=== PATIENT | male | born 1945 | race Caucasian/White ===

== ENCOUNTER → 2016-08-01 | Outpatient (CLI) | payer MEDICARE, OTHER | LOC: RAD 09:08 | PROVIDERS: ATTEND Family Medicine | DX: R42 Dizziness and giddiness (principal) | CPT/HCPCS: 70551; 93880 ==

== ENCOUNTER → 2016-11-02 | Outpatient (CLI) | payer MEDICARE, OTHER ==
--- NOTE | 2016-11-02 11:59 | RADIOLOGY REPORT (SQ) ---
EXAM DESCRIPTION: L SPINE WHOLE COMPLETED DATE/TIME: 11/02/2016 11:27 am REASON FOR STUDY: DORSALGIA (M54.9) M54.9 DORSALGIA, UNSPECIFIED COMPARISON: None. NUMBER OF VIEWS: Five views including obliques. TECHNIQUE: AP, lateral, oblique, and sacral radiographic images acquired of the lumbar spine. LIMITATIONS: None. FINDINGS: MINERALIZATION: Normal. SEGMENTATION: Normal. No transitional anatomy. ALIGNMENT: Normal. VERTEBRAE: Maintained height. No fracture or worrisome bone lesion. DISCS: Preserved height. Anterior osteophytic lipping is identified at multiple levels. POSTERIOR ELEMENTS: Pedicles and facets are intact. No pars defect or posterior arch defects. HARDWARE: None in the spine. PARASPINAL SOFT TISSUES: Normal. PELVIS: Intact as visualized. No fractures or worrisome bone lesions. SI joints intact. OTHER: Vascular calcifications are identified in the abdominal aorta and iliac vessels. IMPRESSION: No significant vertebral compression or disc space reduction is seen. Degenerative holm ges as noted above. Other findings as noted above TECHNICAL DOCUMENTATION: JOB ID: [id number]- All Rights Reserved
== END ==
LOC: RAD 11:06
PROVIDERS: ATTEND Family Medicine
DX: M54.9 Dorsalgia, unspecified (principal)
CPT/HCPCS: 72110

== ENCOUNTER 2017-01-30 11:52 | Observation (INO) | payer MEDICARE, OTHER ==
--- NOTE | 2017-01-30 15:44 | ER Document Report ---
ED General - General Chief Complaint: Difficulty Swallowing Stated Complaint: STOMACH PAIN Time Seen by Provider: 01/30/17 15:40 Mode of Arrival: Ambulatory Information source: Patient Notes: Patient states that 3 different times in the past he has had food stuck in his esophagus but is always passed within 20 minutes. He states last night at 6 PM approximately he was eating chicken and felt it get stuck in his esophagus. He states he has been unable to get rid of the sensation that it is stuck up until now. He states he is constantly gagging and spitting up mucus. He states he cannot swallow water. He denies any problems breathing. He states he has a dull pain in the center of his chest. It is constant. It does not radiate. Nothing makes it better or worse. TRAVEL OUTSIDE OF THE [place] IN LAST 30 DAYS: No - Related Data Allergies/Adverse Reactions: aspirin [Aspirin] Allergy (Severe, Verified 01/30/17 12:44) Anaphylaxis Past Medical History - Social History Smoking Status: Former Smoker Chew tobacco use (# tins/day): No Frequency of alcohol use: Occasional Drug Abuse: None Family History: Reviewed & Not Pertinent - Past Medical History Cardiac Medical History: Reports: Hx Hypercholesterolemia, Hx Hypertension Denies: Hx Coronary Artery Disease, Hx Heart Attack Pulmonary Medical History: Denies: Hx Asthma, Hx Bronchitis, Hx COPD, Hx Pneumonia Neurological Medical History: Denies: Hx Cerebrovascular Accident, Hx Seizures Endocrine Medical History: Reports: Hx Diabetes Mellitus Type 2 Renal/ Medical History: Denies: Hx Peritoneal Dialysis Musculoskeltal Medical History: Denies Hx Arthritis Past Surgical History: Reports: Hx Abdominal Surgery - shrapnel removed, Hx Oral Surgery - jaw surgery, Hx Orthopedic Surgery - broken collar bone - Immunizations Hx Diphtheria, Pertussis, Tetanus Vaccination: Yes Hx Pneumococcal Vaccination: 04/23/12 Review of Systems - Review of Systems Constitutional: denies: Chills, Fever Respiratory: denies: Short of breath, Stridor Gastrointestinal: denies: Abdominal pain, Diarrhea, Vomiting -: Yes All other systems reviewed and negative Physical Exam - Vital signs Vitals: Temp Pulse BP Pulse Ox 99.0 F 74 152/59 H 99 01/30/17 12:46 01/30/17 12:46 01/30/17 12:46 01/30/17 12:46 Interpretation: Hypertensive - General General appearance: Appears well, Alert - HEENT Head: Normocephalic, Atraumatic Eyes: Normal Pupils: PERRL - Respiratory Respiratory status: No respiratory distress Chest status: Nontender Breath sounds: Normal Chest palpation: Normal - Cardiovascular Rhythm: Regular Heart sounds: Normal auscultation Murmur: No - Abdominal Inspection: Normal Distension: No distension Bowel sounds: Normal Tenderness: Nontender Organomegaly: No organomegaly - Back Back: Normal, Nontender - Extremities General upper extremity: Normal inspection, Nontender, Normal color, Normal ROM , Normal temperature General lower extremity: Normal inspection, Nontender, Normal color, Normal ROM , Normal temperature, Normal weight bearing. No: Alexa's sign - Neurological Neuro grossly intact: Yes Cognition: Normal Orientation: AAOx4 [place] Coma Scale Eye Opening: Spontaneous [place] Coma Scale Verbal: Oriented Luis Coma Scale Motor: Obeys Commands Luis Coma Scale Total: 15 Speech: Normal Motor strength normal: LUE, RUE, LLE, RLE Sensory: Normal - Psychological Associated symptoms: Normal affect, Normal mood - Skin Skin Temperature: Warm Skin Moisture: Dry Skin Color: Normal Course - Re-evaluation Re-evalutation: 01/30/17 15:53 Dr. Nelson evaluated the patient in the emergency department and will admit the patient. Please see his note. - Vital Signs Vital signs: Temp Pulse Resp BP Pulse Ox 99.0 F 74 152/59 H 99 01/30/17 12:46 01/30/17 12:46 01/30/17 12:46 01/30/17 12:46 Discharge - Discharge Clinical Impression: Esophageal foreign body Qualifiers: Encounter type: initial encounter Qualified Code(s): T18.108A - Unspecified foreign body in esophagus causing other injury, initial encounter Condition: Fair Disposition: ADMITTED OBSERVATION Admitting Provider: Mannieist Celia Nelson Unit Admitted: Surgical Floor
[2017-01-30] MEDS ORDERED: NORMAL SALINE 1000 ML 1,000 ML IV ONE (15:55)
[2017-01-30] MEDS ORDERED: NALOXONE HCL INJ/PF 0.4 MG/1 ML SDV ONE (16:06)
[2017-01-30] MEDS ORDERED: MIDAZOLAM 2 MG/2 ML INJ ONE (16:07)
[2017-01-30] MEDS ORDERED: GLUCAGON,HUMAN RECOMB 1 MG INJ ONE (16:07)
[2017-01-30] MEDS ORDERED: FLUMAZENIL INJ 0.5 MG/5 ML VIAL ONE (16:07)
[2017-01-30] MEDS ORDERED: EPINEPHRINE INJ 1 MG/10 ML DISP.SYRIN ONE (16:07)
[2017-01-30] MEDS: MIDAZOLAM 2 MG/2 ML INJ ONE ×4 (17:22→17:40)
[2017-01-30] MEDS: FENTANYL CITRATE INJ/PF 100 MCG/2 ML AMPUL ONE ×2 (17:24→17:38)
--- NOTE | 2017-01-30 17:28 | PDOC CONSULTATION ---
Consultation Consult Date: 01/30/17 History of Present Illness Admission Date/PCP: 01/30/17 16:26 FATEMEH TYLER MD History of Present Illness: ISHAAN POTTER is a 72 year old male who was admitted to the emergency room with dysphagia. He was eating chicken last night when it got stuck in his esophagus. He has not been able to swallow since then. He had a barium swallow in the emergency room that showed food impaction. He has a history of recurrent dysphagia for solid foods for the last 10 years. This happens about once every 2-3 months and eventually he is able to bring up the food within 10- 15 minutes. It has never been stuck for this long. He denies heartburn and has not been taking any acid reducing medication. There is no abdominal pain. His bowels move regularly. His last colonoscopy was 2 years ago Past Medical History Cardiac Medical History: Reports: Hyperlipidema, Hypertension Denies: Coronary Artery Disease, Myocardial Infarction Pulmonary Medical History: Denies: Asthma, Bronchitis, Chronic Obstructive Pulmonary Disease (COPD), Pneumonia Neurological Medical History: Denies: Seizures Endocrine Medical History: Reports: Diabetes Mellitus Type 2 Musculoskeltal Medical History: Denies: Arthritis Hematology: Denies: Anemia Past Surgical History Past Surgical History: Reports: Orthopedic Surgery - broken collar bone Social History Smoking Status: Former Smoker Family History Family History: Reviewed & Not Pertinent Parental Family History Reviewed: No Children Family History Reviewed: NA Sibling(s) Family History Reviewed.: NA Medication/Allergy Allergies/Adverse Reactions: aspirin [Aspirin] Allergy (Severe, Verified 01/30/17 12:44) Anaphylaxis Review of Systems All systems: reviewed and no additional remarkable complaints except as stated Physical Exam Vital Signs: Temp Pulse Resp BP Pulse Ox 99.0 F 76 16 165/67 H 98 01/30/17 12:46 01/30/17 16:50 01/30/17 16:50 01/30/17 16:50 01/30/17 16:50 Exam: General: Patient is alert and looks well. HEENT: There is no pallor or jaundice. PERRLA. Oropharynx normal Respiratory: No chest deformity. No respiratory distress. Chest wall palpitation was unremarkable. Breath sounds were normal Cardiovascular: Heart sounds 1 and 2 normal with no murmurs. Abdominal: Not distended. Soft and nontender. Liver and spleen not palpable. No ascites demonstrated. Bowel sounds active. Rectal examination was deferred. Extremities: No edema Neurological: Alert and oriented x4. Grossly nonfocal. Normal speech Skin: No significant rash Psychological: Normal affect Assessment & Plan - Diagnosis (1) Esophageal foreign body Qualifiers: Encounter type: initial encounter Qualified Code(s): T18.108A - Unspecified foreign body in esophagus causing other injury, initial encounter Is this a current diagnosis for this admission?: Yes Plan: He has an esophageal foreign body as part of the barium swallow. He will undergo an urgent EGD with foreign body removal. (2) Dysphagia Is this a current diagnosis for this admission?: Yes Plan: He would need dilation of his esophagus in the near future (3) Abnormal barium swallow Is this a current diagnosis for this admission?: Yes
--- NOTE | 2017-01-30 17:56 | Operative Report ---
Operative Report DATE OF SURGERY: 01/30/17 Operative Report: Pre-op diagnosis: Dysphagia and food impaction on barium swallow Post-op diagnosis: 1. Esophageal foreign body 2. GE junction stricture 3. Distal esophageal ulceration Surgery: Esophagogastroduodenoscopy with foreign body removal Medications: Versed 4mg Fentanyl 100mcg IV push Tissue removed: None Procedure: After informed consent obtained from patient, the throat was sprayed with Hurricane and conscious sedation was achieved. The upper endoscope was inserted into the esophagus under direct vision to the distal esophagus where a large amount of foreign body was identified. Using a polypectomy snare I was able to grasp and pull out most of the foreign body. The rest was pushed into the stomach. The duodenum was entered and examined to the second part. Endoscope was then slowly pulled out of the patient as the mucosa was examined into details. Patient tolerated procedure well. Findings Esophagus: Foreign body with stricture and 3-4 cm linear ulceration in the distal esophagus Antrum: Normal Body: Normal Fundus: Normal Duodenum first part: Normal Duodenum second part: Normal Plan: Omeprazole 20 mg twice daily or Prevacid twice daily. We will need a repeat EGD with dilation in 6-8 weeks OPERATION: .
[2017-01-30] MEDS ORDERED: LANSOPRAZOLE 30 MG TAB.RAP.DR PO SCH (18:00)
[2017-01-30] MEDS: SUCRALFATE SUSP 1 GM/10 ML UDCUP PO SCH ×2 (22:13→23:27)
[2017-01-31] MEDS: SUCRALFATE SUSP 1 GM/10 ML UDCUP PO SCH (05:00)
[2017-01-31 07:37] VITALS: BP 146/64
--- NOTE | 2017-01-31 07:48 | DISCHARGE SUMMARY E ---
Discharge Summary NAME: ISHAAN POTTER : 1945 AGE: 72Y ADMITTED: 01/30/2017 DISCHARGED: 01/31/2017 FINAL DIAGNOSIS: Food bolus to esophagus. PROCEDURE DONE BY DR. DENNY: Removal of food bolus to esophagus, but noted to have a stricture and small laceration. HOSPITAL COURSE: A 72-year-old male who swallowed a piece of chicken that got lodged in his esophagus at 6 p.m. of 01/29/2017. He was not able to swallow any liquids and a barium swallow in the emergency room showed obstruction of distal esophagus. Dr. Denny then did an upper endoscopy and released the food bolus, but noted patient had a stricture of the distal esophagus and also a small area of laceration of the esophageal wall. Patient was given a prescription for Prevacid 30 mg p.o. twice a day for about a month. Further plans were for the patient to be seen by Dr. Denny on outpatient basis and also for dilatation of the stricture in 6 to 8 weeks. DICTATING PHYSICIAN: WALLY GALVEZ M.D. [id number] PHY#: [id number] ID: [id number] JOB#: [id number] ACCT: [id number] cc:Soy PRESSLEY M.D. FRANK KLANDUCH, M.D. > MTDD
--- NOTE | 2017-02-02 15:33 | HISTORY AND PHYSICAL E ---
History and Physical NAME: ISHAAN POTTER : 1945 AGE: 72Y ADMITTED: 01/30/2017 ROOM: 424 CHIEF COMPLAINT: The patient ate a bolus of chicken the night before and since then, unable to swallow his saliva and went to the emergency room, where a barium swallow was done, which showed obstruction of the distal esophagus. Dr. Pitts was called and he will come and do an upper endoscopy to dislodge the food bolus. The patient claims that he had 2 other episodes in the past of obstruction of the esophagus, but after about 20 minutes or so, he was then able to eat well. PAST MEDICAL HISTORY: 1. Cardiac medical history: He reports hypercholesterolemia and hypertension. 2. Pulmonary medical history: He denies asthma or bronchitis. 3. Neurologic history: Denies CVA or seizures. 4. Endocrine history: Reports diabetes mellitus type 2. 5. Renal/genitourinary medical history: Denies history of dialysis, peritoneal. 6. Musculoskeletal: Denies history of arthritis. PAST SURGICAL HISTORY: 1. He reports abdominal surgery - shrapnel removed. 2. Oral surgery - jaw surgery. 3. History of orthopedic surgery - broken collar bone. ALLERGIES: ASPIRIN. SOCIAL HISTORY: A former smoker, occasional alcohol use and denies drug use. FAMILY HISTORY: Reviewed and not pertinent. IMMUNIZATIONS: DPT vaccinations - yes. Pneumococcal vaccine, 04/23/2012. REVIEW OF SYSTEMS: CONSTITUTIONAL: Denies chills, fever. RESPIRATORY: Denies shortness of breath or stridor. GASTROINTESTINAL: Denies abdominal pains, diarrhea and/or constipation. Admits to having inability to swallow after eating a piece of chicken last night. All other systems reviewed are negative. PHYSICAL EXAMINATION: VITAL SIGNS: Temperature 99 degrees Fahrenheit, pulse rate 74 per minute, blood pressure 152/59, pulse ox of 99% on room air. GENERAL APPEARANCE: Appears well and alert. HEENT: Head - normocephalic, atraumatic. Eyes - normal, PERRL. RESPIRATORY: No respiratory distress. Good breath sounds bilaterally. CARDIOVASCULAR: Regular rate and rhythm. Normal auscultation. No murmurs. ABDOMEN: Soft and nontender. BACK: Normal. Nontender. EXTREMITIES: General upper extremity range of motion normal. General lower extremity range of motion normal. No edema. No Alexa's sign. NEUROLOGIC: Alert, oriented x3. Good motor strength left upper extremity, right upper extremity, and both lower extremities. PSYCHOLOGICAL: Normal affect and normal mood. SKIN: Temperature warm, dry, and normal. IMPRESSION: Food bolus of the esophagus. PLAN: 1. Keep hydrated. 2. Dr. Pitts will do an upper endoscopy today. DICTATING PHYSICIAN: WALLY GALVEZ M.D. [id number] PHY#: [id number] ID: [id number] JOB#: [id number] ACCT: [id number] cc:FATEMEH TYLER M.D. >
== END 2017-01-31 08:05 | disposition home or self-care (01) ==
LOC: ER 11:52 → EH 16:19 → UNDOADMOB 16:26 → 4S 18:31 → EH 18:31
PROVIDERS: ATTEND Internal Medicine Gastroenterology
PROC: 0DC58ZZ Extirpation of Matter from Esophagus, Via Natural or Artificial Opening Endoscopic (ICD-10-PCS; principal; 2017-01-30 16:00)
DX: T18.128A Food in esophagus causing other injury, initial encounter (principal); X58.XXXA Exposure to other specified factors, initial encounter; K22.2 Esophageal obstruction; K22.10 Ulcer of esophagus without bleeding; K22.8 Other specified diseases of esophagus; I10 Essential (primary) hypertension; E78.00 Pure hypercholesterolemia, unspecified; E11.9 Type 2 diabetes mellitus without complications; Z87.891 Personal history of nicotine dependence; Z87.821 Personal history of retained foreign body fully removed
CPT/HCPCS: 99285; 96360; 96361; 43247; 82962; G0378 ×2; J2250; J0171; J3010; J7030; 36415; 74176; 74210; 80053; 83690; 85025; J1610; J2310; J3490

== ENCOUNTER → 2017-01-30 | Outpatient (CLI) | payer MEDICARE, OTHER ==
[~2017-01-30] MED LIST: NORMAL SALINE 1000 ML 1,000 ML IV PRN
[2017-01-30 10:50] LABS: ABSOLUTE LYMPHOCYTES (AUTO) 0.8 10^3/uL (0.5-4.7); ABSOLUTE MONOCYTES (AUTO) 0.7 10^3/uL (0.1-1.4); ABSOLUTE NEUT (AUTO) 9.6 10^3/uL (1.7-8.2); BASOPHILS % (AUTO) 0.4 % (0-2); EOSINOPHILS % (AUTO) 0.1 % (0-6); HEMATOCRIT 32.9 % (37.9-51.0); HEMOGLOBIN 11.5 g/dL (13.5-17.0); HGB HCT DIFFERENCE 1.6; MEAN CORPUSCULAR HEMOGLOBIN 33.8 pg (27.0-33.4); MEAN CORPUSCULAR HGB CONC 35.1 g/dL (32.0-36.0); MEAN CORPUSCULAR VOLUME 96 fl (80-97); MONOCYTES % (AUTO) 6.6 % (3-13); RED BLOOD COUNT 3.42 10^6/uL (4.35-5.55); SEGMENTED NEUTROPHILS % (AUTO) 85.9 % (42-78); WHITE BLOOD COUNT 11.2 10^3/uL (4.0-10.5)
[2017-01-30 11:14] LABS: ALANINE AMINOTRANSFERASE 38 U/L (21-72); ALBUMIN 4.5 g/dL (3.5-5.0); ALKALINE PHOSPHATASE 36 U/L (38-126); ANION GAP 17 (5-19); ASPARTATE AMINO TRANSFERASE 26 U/L (17-59); BILIRUBIN,DIRECT 0.6 mg/dL (0.0-0.4); BILIRUBIN,TOTAL 0.8 mg/dL (0.2-1.3); BLOOD UREA NITROGEN 18 mg/dL (7-20); CALCIUM 9.9 mg/dL (8.4-10.2); CARBON DIOXIDE 23 mmol/L (22-30); CHLORIDE 106 mmol/L (98-107); CREATININE RESULT 1.18 mg/dL (0.52-1.25); GLUCOSE 223 mg/dL (75-110); LIPASE 70.8 U/L (23-300); POTASSIUM 3.6 mmol/L (3.6-5.0); SODIUM 146.4 mmol/L (137-145); TOTAL PROTEIN 7.3 g/dL (6.3-8.2)
--- NOTE | 2017-01-30 11:28 | RADIOLOGY REPORT (SQ) ---
EXAM DESCRIPTION: CT ABD/PELVIS NO ORAL OR IV COMPLETED DATE/TIME: 01/30/2017 11:07 am REASON FOR STUDY: ABD PAIN (R10.84) R11.2 NAUSEA WITH VOMITING, UNSPECIFIED R10.84 GENERALIZED ABD OMINAL PAIN R13.10 DYSPHAGIA, UNSPECIFIED COMPARISON: 01/08/2014 TECHNIQUE: CT scan of the abdomen and pelvis performed without intravenous or oral contrast. Images reviewed with lung, soft tissue, and bone windows. Reconstructed coronal and sagittal MPR images revi ewed. All images stored on PACS. All CT scanners at this facility use dose modulation, iterative reconstruction, and/or weight based d osing when appropriate to reduce radiation dose to as low as reasonably achievable (ALARA). [facility]: Dose Right [facility]: CareDose [facility]: Dose Right [facility]: Teradose 4D [facility]: [employer] RADIATION DOSE: Up-to-date CT equipment and radiation dose reduction techniques were employed. CTDIv ol: 11.8 mGy. DLP: 616 mGy-cm.mGy. LIMITATIONS: None. FINDINGS: LOWER CHEST: No significant findings. No nodules or infiltrates. A small hiatal hernia is suggested. NON-CONTRASTED LIVER, SPLEEN, ADRENALS: Evaluation limited by lack of IV contrast. No identified sign ificant masses. PANCREAS: No masses. No peripancreatic inflammatory changes. GALLBLADDER: No identified stones by CT criteria. No inflammatory changes to suggest cholecystitis. RIGHT KIDNEY AND URETER: No suspicious masses. Assessment limited by lack of IV contrast. No signif icant calcifications. No hydronephrosis or hydroureter. LEFT KIDNEY AND URETER: No suspicious masses. Assessment limited by lack of IV contrast. A small in trarenal calcification is present in the left kidney. This is smaller than on earlier study. No hy dronephrosis or hydroureter. AORTA AND RETROPERITONEUM: No aneurysm. No retroperitoneal masses or adenopathy. BOWEL AND PERITONEAL CAVITY: No obvious masses or inflammatory changes. Occasional diverticula arise from the descending and sigmoid colon. APPENDIX: Not identified. PELVIS, BLADDER, AND ABDOMINAL WALL:No abnormal masses. No free fluid. Bladder normal. BONES: No significant findings. OTHER: No other significant finding. IMPRESSION: Mild diverticulosis coli. Small hiatal hernia. No acute abnormality is present. COMMENT: Quality ID # [id number]: Final reports with documentation of one or more dose reduction techniques (e.g., Automated exposure control, adjustment of the mA and/or kV according to patient size, use of iterative reconstruction technique) TECHNICAL DOCUMENTATION: JOB ID: [id number] [employer]- All Rights Reserved
--- NOTE | 2017-01-30 11:36 | RADIOLOGY REPORT (SQ) ---
EXAM DESCRIPTION: BARIUM SWALLOW PHARYNX ONLY COMPLETED DATE/TIME: 01/30/2017 11:20 am REASON FOR STUDY: N/V (R11.2), DYSPHAGIA (R13.10) R11.2 NAUSEA WITH VOMITING, UNSPECIFIED R10.84 G ENERALIZED ABDOMINAL PAIN R13.10 DYSPHAGIA, UNSPECIFIED COMPARISON: None. TECHNIQUE: Under fluoroscopic guidance, patient ingested Isovue-300. Fluoroscopic spot images and ro utine radiographic images acquired and stored on PACS. 12 MM BARIUM TABLET GIVEN: No LIMITATIONS: None. FLUOROSCOPY TIME: 0.9 minutes 5 series of digital images saved to PACS. FINDINGS: There is an impacted food bolus just above the GE junction, above the hemidiaphragm. This prevents passage of contrast into the stomach. Esophagus is otherwise unremarkable. This report was called as a critical result to Haydee HERZOG, 1115 hours Eastern time 01/30/2017 IMPRESSION: Impacted food bolus in the distal esophagus just above the GE junction. COMMENT: Pertinent findings on the imaging study reported as a CRITICAL RESULT to HAYDEE HERZOG at11:15 on 01/30/2017. Category of Critical Result: Occlusive retained food bolus distal esophagus Quality ID [id number]: Final reports for procedures using fluoroscopy that document radiation exposure elly vonda, or exposure time and number of fluorographic images (if radiation exposure indices are not avail able) TECHNICAL DOCUMENTATION: JOB ID: [id number] [employer]- All Rights Reserved
--- NOTE | 2017-01-30 16:15 | PDOC H&P ---
History of Present Illness Admission Date/PCP: ROSENDA HERBERT History of Present Illness: ISHAAN POTTER is a 72 year old male who ate a piece of chicken last night around 6 PM that gets stuck in his esophagus. This morning went to the emergency room were a barium swallow revealed a food bolus stuck in the esophagus just above the GE junction. Patient unable to swallow his saliva. He has to spit out every 3 hours. Past Medical History Cardiac Medical History: Reports: Hypertension Denies: Coronary Artery Disease, Myocardial Infarction Pulmonary Medical History: Denies: Asthma, Bronchitis, Chronic Obstructive Pulmonary Disease (COPD), Pneumonia Neurological Medical History: Denies: Seizures Endocrine Medical History: Reports: Diabetes Mellitus Type 2 - Was exposed to agent orange in [place] Musculoskeltal Medical History: Denies: Arthritis Hematology: Denies: Anemia Past Surgical History Past Surgical History: Reports: Other - Removal of shrapnel that migrated to his abdomen. Tongue surgery due to Social History Smoking Status: Never Smoker Frequency of Alcohol Use: Social - He drinks 1-3 shots of whiskey a night Hx Recreational Drug Use: No - Advance Directive Resuscitation Status: Full Code Family History Parental Family History Reviewed: Yes - Both parents of old age Children Family History Reviewed: No Sibling(s) Family History Reviewed.: No Medication/Allergy Home Medications: Atorvastatin Calcium [Lipitor 40 mg Tablet] 40 mg PO QHS 01/26/14 Cetirizine HCl [Zyrtec 10 mg Tablet] 1 tab PO DAILY 01/26/14 Cholecalciferol (Vitamin D3) [Vitamin D] 50,000 unit PO ASDIR 01/26/14 Fenofibrate Nanocrystallized [Tricor 145 mg Tablet] 145 mg PO QHS 01/26/14 Fluoxetine HCl [Prozac 20 mg Capsule] 20 mg PO DAILY 01/26/14 Lisinopril 40 mg PO DAILY 01/26/14 Metoprolol Tartrate [Lopressor 25 mg Tablet] 25 mg PO BID 01/26/14 Sitagliptin Phosphate [Januvia] 100 mg PO DAILY 01/26/14 Allergies/Adverse Reactions: aspirin [Aspirin] Allergy (Severe, Verified 01/30/17 12:44) Anaphylaxis Review of Systems All systems: reviewed and no additional remarkable complaints except as stated - has to spit out his saliva every 3 hours Constitutional: PRESENT: as per HPI Physical Exam General appearance: PRESENT: mild distress Head exam: PRESENT: atraumatic Eye exam: PRESENT: conjunctiva pink Ear exam: PRESENT: normal external ear exam Mouth exam: PRESENT: moist, tongue midline Respiratory exam: PRESENT: clear to auscultation ben Cardiovascular exam: PRESENT: RRR Pulses: PRESENT: normal carotid pulses Vascular exam: PRESENT: normal capillary refill GI/Abdominal exam: PRESENT: normal bowel sounds Rectal exam: PRESENT: deferred Extremities exam: PRESENT: full ROM Skin exam: PRESENT: dry, normal color, warm Results Laboratory Results: 01/30/17 10:32 01/30/17 10:32 01/30/17 01/30/17 10:32 10:32 WBC 11.2 H RBC 3.42 L Hgb 11.5 L Hct 32.9 L MCV 96 MCH 33.8 H MCHC 35.1 RDW 13.0 Plt Count 137 L Seg Neutrophils % 85.9 H Lymphocytes % 7.0 L Monocytes % 6.6 Eosinophils % 0.1 Basophils % 0.4 Absolute Neutrophils 9.6 H Absolute Lymphocytes 0.8 Absolute Monocytes 0.7 Absolute Eosinophils 0.0 Absolute Basophils 0.0 Sodium 146.4 H Potassium 3.6 Chloride 106 Carbon Dioxide 23 Anion Gap 17 BUN 18 Creatinine 1.18 Est GFR ( Amer) > 60 Est GFR (Non-Af Amer) > 60 Glucose 223 H Calcium 9.9 Total Bilirubin 0.8 AST 26 ALT 38 Alkaline Phosphatase 36 L Total Protein 7.3 Albumin 4.5 Lipase 70.8 Impressions: Abdomen/Pelvis CT 01/30/17 10:18 IMPRESSION: Mild diverticulosis coli. Small hiatal hernia. No acute abnormality is present. Barium Swallow X-Ray 01/30/17 10:18 IMPRESSION: Impacted food bolus in the distal esophagus just above the GE junction. Assessment & Plan - Time Time Spent: 30 to 50 Minutes - Inpatient Certification Based on my medical assessment, after consideration of the patient's comorbidities, presenting symptoms, or acuity I expect that the services needed warrant INPATIENT care.: No I certify that my determination is in accordance with my understanding of Medicare's requirements for reasonable and necessary INPATIENT services [42 CFR 412.3e].: Yes - Plan Summary Plan Summary: Dr. Andrade will do EGD and will dislodge the food bolus in his esophagus
== END ==
LOC: RAD 10:09
PROVIDERS: ATTEND Physician Assistant
DX: R11.2 Nausea with vomiting, unspecified (principal); R10.84 Generalized abdominal pain; R13.10 Dysphagia, unspecified
CPT/HCPCS: 36415; 74176; 74210; 80053; 83690; 85025

== ENCOUNTER → 2017-04-24 | Outpatient (CLI) | payer MEDICARE, OTHER ==
[2017-04-24 12:09] LABS: HEMATOCRIT 34.1 % (37.9-51.0); HEMOGLOBIN 12.1 g/dL (13.5-17.0); MEAN CORPUSCULAR HEMOGLOBIN 34.1 pg (27.0-33.4); MEAN CORPUSCULAR HGB CONC 35.3 g/dL (32.0-36.0); MEAN CORPUSCULAR VOLUME 96 fl (80-97); PLATELET COUNT 124 10^3/uL (150-450); RED BLOOD COUNT 3.54 10^6/uL (4.35-5.55); RED CELL DISTRIBUTION WIDTH 12.5 % (11.5-14.0); WHITE BLOOD COUNT 5.1 10^3/uL (4.0-10.5)
[2017-04-24 12:38] LABS: ANION GAP 10 (5-19); BLOOD UREA NITROGEN 17 mg/dL (7-20); CALCIUM 10.3 mg/dL (8.4-10.2); CARBON DIOXIDE 27 mmol/L (22-30); CHLORIDE 106 mmol/L (98-107); GLUCOSE 171 mg/dL (75-110); POTASSIUM 4.3 mmol/L (3.6-5.0); SODIUM 143.3 mmol/L (137-145)
== END ==
LOC: LAB 11:47
PROVIDERS: ATTEND Internal Medicine Nephrology
DX: I12.9 Hypertensive chronic kidney disease with stage 1 through stage 4 chronic kidney disease, or unspecified chronic kidney disease (principal); N18.2 Chronic kidney disease, stage 2 (mild); E11.9 Type 2 diabetes mellitus without complications
CPT/HCPCS: 36415; 80048; 85027

== ENCOUNTER → 2017-05-22 | Outpatient (CLI) | payer MEDICARE, OTHER ==
--- NOTE | 2017-05-22 15:58 | RADIOLOGY REPORT (SQ) ---
EXAM DESCRIPTION: CT LUNG CANCER SCREENING COMPLETED DATE/TIME: 05/22/2017 1:49 pm REASON FOR STUDY: Z87.891 PERSONAL HISTORY OF NICOTINE DEPENDENCE Z87.891 PERSONAL HISTORY OF NICOT INE DEPENDENCE Has the patient had a Chest CT scan within the past year? Was the patient offered tobacco cessation counseling? Was the patient engaged in shared decision making for this test? Does the patient have signs or symptoms of Lung Cancer? Is the patient a smoker? How many packs per year? How many years since quitting smoking? Patients age: COMPARISON: None. TECHNIQUE: Low Dose CT scan performed of the chest without intravenous contrast for purposes of scre ening for lung cancer. Images reviewed with lung, soft tissue and bone windows. Reconstructed coron al and sagittal MPR images reviewed. All images stored on PACS. All CT scanners at this facility use dose modulation, iterative reconstruction, and/or weight based d osing when appropriate to reduce radiation dose to as low as reasonably achievable (ALARA). [facility]: Dose Right [facility]: CareDose [facility]: Dose Right [facility]: Teradose 4D [facility]: CareShare RADIATION DOSE: mGy. . LIMITATIONS: No technical limitations. FINDINGS: LUNG NODULES: Description: Prior solid nodule right upper lobe image 32. Size: 6 mm. REMAINING LUNGS AND PLEURA: No pleural effusions or calcifications. No pneumothorax. No scarrin g or interstitial changes. HILAR AND MEDIASTINAL STRUCTURES: No identified masses. No abnormal nodes. HEART AND VASCULAR STRUCTURES: No aortic aneurysm. No pericardial effusion. No cardiac devices. CORONARY ARTERY CALCIFICATIONS: Mild to moderate calcifications. UPPER ABDOMEN: No significant findings. THYROID AND OTHER SOFT TISSUES: No masses. No adenopathy. BONES: No significant finding. OTHER: No other significant findings. IMPRESSION: PROBABLY BENIGN FINDINGS IN THE LUNGS. NO OTHER CLINICALLY SIGNIFICANT/POTENTIALLY CLINICALLY SIGNIFICANT FINDINGS LUNGRADS: LUNGRADS: 3, PROBABLY BENIGN. PROBABLY BENIGN FINDING(S)- SHORT TERM FOLLOW UP SUGGESTED; INCLUDES NODULES WITH A LOW LIKELIHOOD OF BECOMING A CLINICALLY ACTIVE CANCER. MODIFIER: NONE. RECOMMENDATION: Followup LDCT in 6 months. COMMENT: CRITERIA: Solid nodule(s): ? 6 mm to < 8 mm at baseline OR new 4 mm to < 6 mm. Part solid nodule(s): ? 6 mm total diameter with solid component < 6 mm OR new < 6 mm total diameter . Non solid nodule(s) (GGN): ? [address] or new. TECHNICAL DOCUMENTATION: JOB ID: [id number] Quality ID # [id number]: Final reports with documentation of one or more dose reduction techniques (e.g., Au tomated exposure control, adjustment of the mA and/or kV according to patient size, use of iterative reconstruction technique) 2010 [facility] Rad[facility]
== END ==
LOC: RAD 13:45
PROVIDERS: ATTEND Physician Assistant
DX: Z12.2 Encounter for screening for malignant neoplasm of respiratory organs (principal); Z87.891 Personal history of nicotine dependence
CPT/HCPCS: G0297

== ENCOUNTER → 2018-10-04 | Outpatient (CLI) | payer MEDICARE, OTHER ==
[2018-10-04 15:41] LABS: ANION GAP 10 (5-19); BLOOD UREA NITROGEN 13 mg/dL (7-20); CALCIUM 9.3 mg/dL (8.4-10.2); CARBON DIOXIDE 25 mmol/L (22-30); CHLORIDE 101 mmol/L (98-107); GLUCOSE 239 mg/dL (75-110); POTASSIUM 3.9 mmol/L (3.6-5.0); SODIUM 136.1 mmol/L (137-145)
== END ==
LOC: OD 14:30
PROVIDERS: ATTEND Family Medicine
DX: E87.5 Hyperkalemia (principal)
CPT/HCPCS: 36415; 80048

== ENCOUNTER → 2019-11-14 | Outpatient (CLI) | payer MEDICARE, OTHER ==
--- NOTE | 2019-11-14 12:18 | RADIOLOGY REPORT (SQ) ---
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 TECHNIQUE: Axial images acquired through the brain without intravenous contrast. Images reviewed wi th bone, brain and subdural windows. Additional sagittal and coronal reconstructions were generated. Images stored on PACS. All CT scanners at this facility use dose modulation, iterative reconstruction, and/or weight based d osing when appropriate to reduce radiation dose to as low as reasonably achievable (ALARA). [facility]: Dose Right [facility]: CareDose [facility]: Dose Right [facility]: Teradose 4D [facility]: Sutus RADIATION DOSE: CT Rad equipment meets quality standard of care and radiation dose reduction techniq ues were employed. CTDIvol: 48.6 mGy. DLP: 905 mGy-cm.mGy. LIMITATIONS: None. FINDINGS: VENTRICLES: Prominent. CEREBRUM: No masses. No hemorrhage. No midline shift. Areas of low density in the white matter mos t likely due to chronic micro-vascular ischemic change. No evidence for acute infarction. CEREBELLUM: No masses. No hemorrhage. No alteration of density. No evidence for acute infarction. EXTRAAXIAL SPACES: Age-related involutional change. No fluid collections. No masses. ORBITS AND GLOBE: No intra- or extraconal masses. Normal contour of globe without masses. CALVARIUM: No fracture. PARANASAL SINUSES: No fluid or mucosal thickening. SOFT TISSUES: No mass or hematoma. OTHER: No other significant finding. IMPRESSION: CHRONIC CHANGES OF ATROPHY AND MICROVASCULAR ISCHEMIA. NO ACUTE PROCESS. EVIDENCE OF ACUTE STROKE: NO. TECHNICAL DOCUMENTATION: JOB ID: [id number] Quality ID # [id number]: Final reports with documentation of one or more dose reduction techniques (e.g., Au tomated exposure control, adjustment of the mA and/or kV according to patient size, use of iterative reconstruction technique) 2010 [employer]- All Rights Reserved Reading location - IP/workstation name: [email or web address]
== END ==
LOC: RAD 11:22
PROVIDERS: ATTEND Family Medicine
DX: R53.1 Weakness (principal)
CPT/HCPCS: 70450

== ENCOUNTER → 2019-12-31 | Outpatient (CLI) | payer MEDICARE, OTHER ==
--- NOTE | 2019-12-31 12:26 | RADIOLOGY REPORT (SQ) ---
EXAM DESCRIPTION: U/S RETROPERITON (RENAL/AORTA) IMAGES COMPLETED DATE/TIME: 12/31/2019 11:33 am REASON FOR STUDY: N18.2 CHRONIC KIDNEY DISEASE, STAGE 2 (MILD) N28.9 DISORDER OF KIDNEY AND URETER, UNSPECIFIED N18.2 CHRONIC KIDNEY DISEASE, STAGE 2 (MILD) COMPARISON: None. TECHNIQUE: Dynamic and static grayscale images acquired of the kidneys and bladder and recorded on P ACS. Additional selected color Doppler and spectral images recorded. LIMITATIONS: None. FINDINGS: RIGHT KIDNEY: Normal size, 11.1 cm. Normal echogenicity. No solid or suspicious masses. No hydronephrosis. No calcifications. LEFT KIDNEY: Normal size, 12 cm. Normal echogenicity. No solid or suspicious masses. No hydronephros is. No calcifications. BLADDER: The bladder is incompletely filled. No masses seen. Ureteral jets are not seen. OTHER FINDINGS: No other significant finding. IMPRESSION: NORMAL RENAL AND BLADDER ULTRASOUND. TECHNICAL DOCUMENTATION: JOB ID: [id number] 2010 [employer]- All Rights Reserved Reading location - IP/workstation name: [email or web address]
== END ==
LOC: RAD 11:09
PROVIDERS: ATTEND Family Medicine
DX: N18.2 Chronic kidney disease, stage 2 (mild) (principal)
CPT/HCPCS: 76770